=== PATIENT | male | born 1985 | race American Indian/Alaskan Native ===

== ENCOUNTER 2018-02-22 12:47 | Emergency (ER) | payer SELFPAY ==
[2018-02-22] MEDS ORDERED: HCTZ PO ONE (14:05)
[2018-02-22] MEDS ORDERED: ZESTRIL PO ONE (14:05)
--- NOTE | 2018-02-22 14:09 | Emergency Department Report ---
ED General Adult HPI - General Chief complaint: High BP Stated complaint: HBP Time Seen by Provider: 02/22/18 14:01 Source: patient Mode of arrival: Ambulatory Limitations: No Limitations - History of Present Illness Initial comments: Patient is 32 years old male was sent from [facility] for elevated blood pressure. Patient was admitted there for schizophrenia. Patient stated that he was taking Vasotec and hydrochlorothiazide when he was incarcerated and that was controlling his pressure may well. Patient denied any other symptoms. Patient denied any headache, neck pain, chest pain, shortness of breath, abdominal pain, weakness, numbness or tingling sensation. - Related Data Previous Rx's Medication Instructions Recorded Last Taken Type Enalapril Maleate [Vasotec] 20 mg PO DAILY #30 tablet 02/22/18 Unknown Rx hydroCHLOROthiazide [HCTZ] 25 mg PO QDAY #30 tablet 02/22/18 Unknown Rx ED Review of Systems ROS: Stated complaint: HBP Other details as noted in HPI Comment: All other systems reviewed and negative Constitutional: denies: chills Respiratory: denies: cough, orthopnea, shortness of breath, SOB with exertion Cardiovascular: denies: chest pain, palpitations Gastrointestinal: denies: abdominal pain, nausea, vomiting ED Past Medical Hx - Past Medical History Previous Medical History?: Yes Hx Hypertension: Yes - Surgical History Past Surgical History?: No - Social History Smoking Status: Current Every Day Smoker Substance Use Type: Alcohol, Marijuana - Medications Home Medications: Home Medications Medication Instructions Recorded Confirmed Last Taken Type Enalapril Maleate [Vasotec] 20 mg PO DAILY #30 tablet 02/22/18 Unknown Rx hydroCHLOROthiazide [HCTZ] 25 mg PO QDAY #30 tablet 02/22/18 Unknown Rx ED Physical Exam - General Limitations: No Limitations General appearance: alert, in no apparent distress - Head Head exam: Present: atraumatic, normocephalic, normal inspection - Eye Eye exam: Present: normal appearance - ENT ENT exam: Present: normal exam, normal orophraynx, mucous membranes moist - Neck Neck exam: Present: normal inspection, full ROM. Absent: tenderness, meningismus, lymphadenopathy - Respiratory Respiratory exam: Present: normal lung sounds bilaterally. Absent: respiratory distress, wheezes, rales, rhonchi, stridor, chest wall tenderness, accessory muscle use, decreased breath sounds, prolonged expiratory - Cardiovascular Cardiovascular Exam: Present: regular rate, normal rhythm, normal heart sounds - GI/Abdominal GI/Abdominal exam: Present: soft, normal bowel sounds. Absent: distended, tenderness, guarding, rebound, rigid, organomegaly, mass, bruit, pulsatile mass , hernia - Extremities Exam Extremities exam: Present: normal inspection, full ROM, normal capillary refill. Absent: tenderness, pedal edema, joint swelling, calf tenderness - Neurological Exam Neurological exam: Present: alert, oriented X3, CN II-XII intact, normal gait, reflexes normal - Skin Skin exam: Present: warm, intact, normal color ED Course Vital Signs 02/22/18 02/22/18 12:52 14:15 Temperature 98.3 F Pulse Rate 113 H 74 Respiratory 18 Rate Blood Pressure 137/105 152/95 O2 Sat by Pulse 100 Oximetry - Reevaluation(s) Reevaluation #1: 02/22/18 17:26 After patient was ready to be discharged to go back to [facility], patient started saying that he is having suicidal thoughts. He stated that he is hearing voices asking him to kill himself. Patient does not have a plan. He denied any homicidal ideation. Patient immediately put on 1013 and mental health evaluation requested. Critical care attestation.: If time is entered above; I have spent that time in minutes in the direct care of this critically ill patient, excluding procedure time. ED Disposition Clinical Impression: Hypertension, Suicidal ideation Disposition: [id number]/TX-65 PSY HOSP/PSY UNIT Is pt being admited?: No Condition: Stable Instructions: Hypertension (ED) Prescriptions: Enalapril Maleate [Vasotec] 20 mg PO DAILY #30 tablet hydroCHLOROthiazide [HCTZ] 25 mg PO QDAY #30 tablet Referrals: PRIMARY CARE, [Primary Care Provider] - 3-5 Days
[2018-02-22 22:43] LABS: Amphetamine Screen,Urine PRESUMPTIVE NEGATIVE; Benzodiazepines Screen,Urine PRESUMPTIVE NEGATIVE; Cocaine Screen,Urine PRESUMPTIVE NEGATIVE; Methadone Screen,Urine PRESUMPTIVE NEGATIVE; Opiate Screen,Urine PRESUMPTIVE NEGATIVE
[2018-02-22 22:48] LABS: Bilirubin,Urine NEG (Negative); Blood,Urine NEG (Negative); Color,Urine Amber (Yellow); Mucus,Urine 3+ /HPF
[2018-02-22 23:08] LABS: Basophils # (Auto) 0.1 K/mm3 (0.0-0.1); Basophils % (Auto) 1.6 % (0.0-1.8); Eosinophils # (Auto) 0.1 K/mm3 (0.0-0.4); Eosinophils % (Auto) 2.1 % (0.0-4.3); Hematocrit 44.3 % (35.5-45.6); Lymphocytes # (Auto) 2.4 K/mm3 (1.2-5.4); Lymphocytes % (Auto) 36.6 % (13.4-35.0); Mean Corpuscular HGB Conc 34 % (32-34); Mean Corpuscular Hemoglobin 31 pg (28-32); Mean Corpuscular Volume 91 fl (84-94); Monocytes # (Auto) 0.5 K/mm3 (0.0-0.8); Monocytes % (Auto) 7.1 % (0.0-7.3); Platelet Count 211 K/mm3 (140-440); Red Blood Count 4.87 M/mm3 (3.65-5.03); Red Cell Distribution Width 13.5 % (13.2-15.2)
[2018-02-22 23:17] LABS: Cannabinoid Screen,Urine PRESUMPTIVE POSITIVE
[2018-02-22 23:28] LABS: BUN/Creatinine Ratio 12; Blood Urea Nitrogen 11 mg/dL (9-20); Calcium 9.4 mg/dL (8.4-10.2); Hemolysis Index 0
[2018-02-23] MEDS ORDERED: D50W (25GM) Syringe IV ONE (05:04)
--- NOTE | 2018-02-23 14:12 | Consultation ---
History of Present Illness - Reason for Consult Consult date: 02/23/18 Reason for consult: Mental Health Evaluation Requesting physician: OSCAR EWING - Chief Complaint Chief complaint: "I am hearing voices' - History of Present Psychiatric Illness 32 years old AA male was sent from [facility] for elevated blood pressure. Per the record, the patient stated that he was hearing voice telling him to kill himself prior to his discharge from the ER. Today the patient is calm and cooperative, but adamant about hearing voices. He stated that the voices are saying "lots of things." He stated that he is trying to ignore them, but it's very difficult for him at this time. He would not confirm or deny that the voices are telling him to kill himself when asked. He was asked about being suicidal, he stated, "I don't k now." Per collateral from the [facility] staff, the patient takes Zyprex 5 mg PO QAM and 10 mg PO HS. He denies erratic sleep and a poor appetite. He denies recreational drug use, but he is positive for marijuana. He denies alcohol consumption (etoh). Medications and Allergies Allergies Allergy/AdvReac Type Severity Reaction Status Date / Time No Known Allergies Allergy Verified 02/23/18 05:14 Home Medications Medication Instructions Recorded Confirmed Last Taken Type Enalapril Maleate [Vasotec] 20 mg PO DAILY #30 tablet 02/22/18 Unknown Rx hydroCHLOROthiazide [HCTZ] 25 mg PO QDAY #30 tablet 02/22/18 Unknown Rx Past psychiatric history - Past Medical History Past Medical History: hypertension Past Surgical History: No surgical history - past Psychiatric treatment and history psychiatric treatment history: Several inpatient psy settings. He denies a fam psy hx. - Social History Social history: lives with family Mental Status Exam - Vital signs Last Vital Signs Temp 98.4 F 02/23/18 10:00 Pulse 100 H 02/23/18 10:00 Resp 18 02/23/18 12:35 BP 168/103 02/23/18 10:00 Pulse Ox 100 02/23/18 12:35 - Exam Narrative exam: MSE: Appearance: calm, cooperative, disheveled Behavior: regular eye contact Speech: regular rate and tone Mood: "okay" Affect: flat Thought Process: circumstantial Thought Content: denies HI's and VH's, the patient can not confirm or deny SI's Motor Activity: lying in bed Cognition: A/O x 3 Insight: poor Judgment: poor Results Result Diagrams: 02/22/18 22:21 02/22/18 22:21 Abnormal lab results 02/22/18 02/22/18 02/22/18 Range/Units 21:23 22:21 22:21 Lymph % (Auto) (13.4-35.0) % Glucose (75-100) mg/dL Ur Specific [place] 1.032 H (1.003-1.030) Urine WBC (Auto) 11.0 H (0.0-6.0) /HPF Salicylates < 0.3 L (2.8-20.0) mg/dL Acetaminophen < 5.0 L (10.0-30.0) ug/mL 02/22/18 02/22/18 Range/Units 22:21 22:21 Lymph % (Auto) 36.6 H (13.4-35.0) % Glucose 117 H (75-100) mg/dL Ur Specific [place] (1.003-1.030) Urine WBC (Auto) (0.0-6.0) /HPF Salicylates (2.8-20.0) mg/dL Acetaminophen (10.0-30.0) ug/mL All other labs normal. Assessment and Plan Assessment and plan: Impression: Unspecified Psychosis. Cannabis Use DO. Today the patient is calm and cooperative, but adamant about hearing voices. DDx: Schizophrenia, R/O Bipolar DO with psychosis Recommendation/Plan: Continue 1013 with placement to inpatient psy services. Start Zyprexa 5 mg PO QAM and 10 mg PO HS for psychosis. Discussed possible metabolic side effects of Zyprexa with patient.
--- NOTE | 2018-02-24 12:00 | Progress Note ---
Subjective - Reason for Consult Consult date: 02/24/18 Reason for consult: Psychiatry Follow-up - Chief Complaint Chief complaint: "I want to be okay" 32 years old AA male was sent from [facility] for elevated blood pressure. Per the record, the patient stated that he was hearing voice telling him to kill himself prior to his discharge from the ER. Today the patient is calm and cooperative during the assessment. He stated that he want the voices to stop. He would not confirm or deny SI's when asked. He stated that the voices continue to tell him to harm himself. He denies HI's and VH's. He denies any side effects of his medication. Mental Status Exam - Vital signs Last Vital Signs Temp 98.4 F 02/23/18 10:00 Pulse 100 H 02/23/18 10:00 Resp 18 02/23/18 12:35 BP 148/110 02/23/18 20:45 Pulse Ox 100 02/23/18 12:35 - Exam Narrative exam: MSE: Appearance: calm, cooperative, disheveled Behavior: regular eye contact Speech: regular rate and tone Mood: "okay" Affect: flat Thought Process: circumstantial Thought Content: denies HI's and VH's, the patient can not confirm or deny SI's Motor Activity: lying in bed Cognition: A/O x 3 Insight: poor Judgment: poor Assessment and Plan Impression: Unspecified Psychosis. Cannabis Use DO. Today the patient is calm and cooperative during the assessment. DDx: Schizophrenia, R/O Bipolar DO with psychosis Recommendation/Plan: Continue 1013 with placement to inpatient psy services. Continue Zyprexa 5 mg PO QAM and 10 mg PO HS for psychosis. Discussed possible metabolic side effects of Zyprexa with patient.
[2018-02-25] MEDS: NORVASC PO SCH (11:00)
[2018-02-25] MEDS ORDERED: CATAPRES PO ONE (21:16)
[2018-02-25] MEDS ORDERED: ZESTRIL PO ONE ×2 (21:16→21:17)
[2018-02-26] MEDS: NORVASC PO SCH (10:21)
--- NOTE | 2018-02-26 13:08 | Progress Note ---
Subjective - Reason for Consult Consult date: 02/26/18 Reason for consult: Psychiatry Follow-up - Chief Complaint Chief complaint: "I want to be okay" 32 years old AA male was sent from [facility] for elevated blood pressure. Per the record, the patient stated that he was hearing voice telling him to kill himself prior to his discharge from the ER. Today the patient is calm and cooperative, but anxious during the assessment. He stated that his anxiety has interfered with his sleep. He cannot explain why he is anxious when asked. He continue to hear voices telling him "all sorts of things." He denies SI/HI's and VH's. He denies any side effects of his medication. Mental Status Exam - Vital signs Last Vital Signs Temp 98.3 F 02/26/18 11:17 Pulse 101 H 02/26/18 11:17 Resp 18 02/26/18 11:17 BP 134/77 02/26/18 12:50 Pulse Ox 99 02/26/18 02:00 - Exam Narrative exam: MSE: Appearance: calm, cooperative Behavior: regular eye contact Speech: regular rate and tone Mood: "okay" guarded Affect: flat Thought Process: circumstantial Thought Content: denies SI/HI's and VH's Motor Activity: lying in bed Cognition: A/O x 3 Insight: variable Judgment: variable Assessment and Plan Impression: Unspecified Psychosis. Cannabis Use DO. Additional Dx: Unspecified Anxiety DO. Today the patient is calm and cooperative, but anxious during the assessment. DDx: Schizophrenia, R/O Bipolar DO with psychosis Recommendation/Plan: Continue 1013 with placement to inpatient psy services. Continue Zyprexa 5 mg PO QAM and 10 mg PO HS for psychosis and start Buspar 7.5 mg PO BID for anxiety. Discussed possible metabolic side effects of Zyprexa with patient.
[2018-02-26] MEDS: BUSPAR PO SCH ×2 (15:36→22:19)
[2018-02-27] MEDS: BUSPAR PO SCH ×2 (11:05→22:11)
[2018-02-27] MEDS: NORVASC PO SCH (11:05)
--- NOTE | 2018-02-27 12:53 | Progress Note ---
Subjective - Reason for Consult Consult date: 02/27/18 Reason for consult: Psychiatry Follow-up - Chief Complaint Chief complaint: "The voices are my issue" 32 years old AA male was sent from [facility] for elevated blood pressure. Per the record, the patient stated that he was hearing voice telling him to kill himself prior to his discharge from the ER. Today the patient is calm and cooperative during the assessment. He stated that the voices are his "main issue." He would not confirm or deny that the voices or his SI's have decreased when asked. He is adamant that he need help for his "mental health." He denies HI's and VH's. He denies any side effects of his medications. Mental Status Exam - Vital signs Last Vital Signs Temp 98.6 F 02/26/18 19:45 Pulse 89 02/27/18 11:05 Resp 18 02/26/18 19:45 BP 149/86 02/27/18 11:05 Pulse Ox 99 02/26/18 19:45 - Exam Narrative exam: MSE: Appearance: calm, cooperative Behavior: poor eye contact Speech: regular rate and tone Mood: "okay" guarded Affect: flat Thought Process: circumstantial Thought Content: denies SI/HI's and VH's Motor Activity: lying in bed Cognition: A/O x 3 Insight: variable Judgment: variable Assessment and Plan Impression: Unspecified Psychosis. Cannabis Use DO. Additional Dx: Unspecified Anxiety DO. Today the patient is calm and cooperative during the assessment. DDx: Schizophrenia, R/O Bipolar DO with psychosis Recommendation/Plan: Continue 1013 with placement to inpatient psy services. Continue Zyprexa 5 mg PO QAM and 10 mg PO HS for psychosis and start Buspar 7.5 mg PO BID for anxiety. Discussed possible metabolic side effects of Zyprexa with patient.
[2018-02-28] MEDS: BUSPAR PO SCH ×3 (11:23→23:19)
[2018-02-28] MEDS: NORVASC PO SCH (11:24)
--- NOTE | 2018-02-28 13:26 | Progress Note ---
Subjective - Reason for Consult Consult date: 02/28/18 Reason for consult: Psychiatry Follow-up - Chief Complaint Chief complaint: "Chela" 32 years old AA male was sent from [facility] for elevated blood pressure. Per the record, the patient stated that he was hearing voice telling him to kill himself prior to his discharge from the ER. Today the patient is calm and cooperative during the assessment. He stated that the voices are still active. He stated that he didn't sleep well last night because of the voices. Throughout the interview, the patient would look around and pause before he answer questions, possibly respond to some type of stimuli. He denies SI/HI's and VH's. He denies any side effects of his medications. Mental Status Exam - Vital signs Last Vital Signs Temp 97.8 F 02/28/18 08:00 Pulse 86 02/28/18 08:00 Resp 16 02/28/18 08:00 BP 148/97 02/28/18 08:00 Pulse Ox 100 02/28/18 08:00 - Exam Narrative exam: MSE: Appearance: calm, cooperative Behavior: regular eye contact Speech: regular rate and tone Mood: guarded Affect: flat Thought Process: circumstantial Thought Content: denies SI/HI's and VH's, paranoid Motor Activity: lying in bed Cognition: A/O x 3 Insight: variable Judgment: variable Assessment and Plan Impression: Unspecified Psychosis. Cannabis Use DO. Additional Dx: Unspecified Anxiety DO. Today the patient is calm and cooperative during the assessment. DDx: Schizophrenia, R/O Bipolar DO with psychosis Recommendation/Plan: Continue 1013 with placement to inpatient psy services. Increase Zyprexa to 10 mg PO QAM for psychosis, continue Zyprexa 10 mg PO HS for psychosis, and Buspar 7.5 mg PO BID for anxiety. Discussed possible metabolic side effects of Zyprexa with patient.
[2018-03-01] MEDS: BUSPAR PO SCH ×2 (12:03→23:40)
[2018-03-01] MEDS: NORVASC PO SCH (12:04)
--- NOTE | 2018-03-01 15:56 | Progress Note ---
Subjective - Reason for Consult Consult date: 03/01/18 Reason for consult: Psychiatric Follow-up Evaluation - Chief Complaint Chief complaint: "I'm alright" Patient is a 32 years old male that was recently discharged from [facility]. He presented to the emergency room with elevated blood pressure. He verbalized to the provider, he presented to the emergency room due to auditory hallucinations and paranoid schizophrenia. Today the patient is calm and cooperative during the assessment. He continues to endorse auditory hallucinations telling him to hurt himself and that others are trying to hurt him. Patient has paranoid thoughts secondary to auditory hallucinations. He reports good sleep and appetite. He denies SI/HI's and VH's. Patient is compliant with medication. He denies any side effects of his medications. Mental Status Exam - Vital signs Last Vital Signs Temp 98.5 F 03/01/18 12:11 Pulse 66 03/01/18 12:11 Resp 20 03/01/18 12:11 BP 158/95 03/01/18 12:11 Pulse Ox 100 03/01/18 12:11 - Exam Narrative exam: Mental Status Exam General Appearance: Causally Dressed-hospital gown Eye Contact: Intermittent Orientation: Alert and oriented x 4 ( person, place, time, and situation) Attitude/Behavior: Cooperative Sensorium: Distracted Psychomotor & Musculoskeletal Activity: WNL Mood: "Alright" Affect: Congruent with mood Speech/Language: Normal rate and tone Thought Processes: Circumstantial Thought Content: +Paranoid delusions secondary to AH's Perception: + AH's telling him to hurt himself and others are trying to hurt him Concentration/Attention: Impaired Suicidal Ideations/Plan: Patient denies Homicidal Ideations/Plan: Patient denies Judgment: Poor Insight: Poor Assessment and Plan Impression: Unspecified Psychosis. Cannabis Use DO. Additional Dx: Unspecified Anxiety DO. Today the patient is calm and cooperative during the assessment. He endorses AH's and paranoid delusions. He denies SI/HI's. DDx: Schizophrenia, R/O Bipolar DO with psychosis Recommendation/Plan: 1. Continue 1013 with placement to inpatient psychiatric services. 2. Continue Zyprexa to 10 mg PO QAM for psychosis, continue Zyprexa 10 mg PO HS for psychosis, and Buspar 7.5 mg PO BID for anxiety. Discussed possible metabolic side effects of Zyprexa with patient. 3. Will continue to monitor mood, psychosis, sleep, appetite, compliance,and side effects.
[2018-03-01] MEDS ORDERED: DESYREL PO ONE (23:22)
[2018-03-01] MEDS ORDERED: COGENTIN ONE (23:22)
[2018-03-02] MEDS: BUSPAR PO SCH ×2 (10:54→22:04)
[2018-03-02] MEDS: NORVASC PO SCH (10:55)
--- NOTE | 2018-03-02 13:05 | Progress Note ---
Subjective - Reason for Consult Consult date: 03/02/18 Reason for consult: Psychiatry Follow-up - Chief Complaint Chief complaint: "I hate the voices" 32 years old AA male was sent from [facility] for elevated blood pressure. Per the record, the patient stated that he was hearing voice telling him to kill himself prior to his discharge from the ER. Today the patient is agitated and paranoid during the assessment. He did state that the voices are still active and he don't know what to do about it. He stated, "something isn't right with me." He is adamant that he need help for his issues. He became angry after discussing his treatment and would not answer anymore questions. No gestures of SI/HI's. No indications of side effects of his medications. Mental Status Exam - Vital signs Last Vital Signs Temp 98.4 F 03/02/18 10:00 Pulse 103 H 03/02/18 10:55 Resp 18 03/02/18 10:00 BP 146/88 03/02/18 10:55 Pulse Ox 100 03/02/18 10:00 - Exam Narrative exam: MSE: Appearance: uncooperative Behavior: regular eye contact Speech: regular rate and loud tone Mood: agitated Affect: congruent to mood Thought Process: circumstantial Thought Content: denies SI/HI's and VH's, paranoid Motor Activity: lying in bed Cognition: A/O x 3 Insight: variable Judgment: variable Assessment and Plan Impression: Unspecified Psychosis. Cannabis Use DO. Additional Dx: Unspecified Anxiety DO. Today the patient is agitated and paranoid during the assessment. DDx: Schizophrenia, R/O Bipolar DO with psychosis Recommendation/Plan: The patient's 1013 had to be extended. Continue 10 mg PO QAM for psychosis, continue Zyprexa 10 mg PO HS for psychosis, and Buspar 7.5 mg PO BID for anxiety. Discussed possible metabolic side effects of Zyprexa with patient.
[2018-03-03] MEDS: BUSPAR PO SCH (10:30)
[2018-03-03] MEDS: NORVASC PO SCH (10:30)
--- NOTE | 2018-03-03 12:52 | Progress Note ---
Subjective - Reason for Consult Consult date: 03/03/18 Reason for consult: Psychiatry Follow-up - Chief Complaint Chief complaint: "It's what it is" Patient is a 32 years old male that was recently discharged from [facility]. He presented to the emergency room with elevated blood pressure. He verbalized to the provider, he presented to the emergency room due to auditory hallucinations and paranoid schizophrenia. Today the patient is calm during the assessment. The patient had to be redirected several times, because he rambles on about lutheran content. He denies SI's and VH's. He stated that the voices are still active. He denies any side effects of his medications. Mental Status Exam - Vital signs Last Vital Signs Temp 99.3 F 03/02/18 20:10 Pulse 101 H 03/02/18 20:10 Resp 14 03/02/18 20:10 BP 139/85 03/02/18 20:10 Pulse Ox 100 03/02/18 20:10 - Exam Narrative exam: MSE: Appearance: calm Behavior: regular eye contact Speech: regular rate and loud tone Mood: "I don't know" Affect: flat Thought Process: circumstantial Thought Content: denies SI/HI's and VH's, hyper lutheran Motor Activity: lying in bed Cognition: A/O x 3 Insight: poor Judgment: variable Assessment and Plan Impression: Unspecified Psychosis. Cannabis Use DO. Additional Dx: Unspecified Anxiety DO. Today the patient is agitated and paranoid during the assessment. DDx: Schizophrenia, R/O Bipolar DO with psychosis Recommendation/Plan: Continue 1013 with placement to [facility] pending transport time. Continue 10 mg PO QAM for psychosis, continue Zyprexa 10 mg PO HS for psychosis, and Buspar 7.5 mg PO BID for anxiety. Discussed possible metabolic side effects of Zyprexa with patient.
[2018-03-03 20:45] VITALS: BP 138/71
== END 2018-03-03 20:30 ==
LOC: ED 12:47 → EEVIPCON 12:47 → ED 03-03 20:30
DX: I10 Essential (primary) hypertension (principal); F17.200 Nicotine dependence, unspecified, uncomplicated
CPT/HCPCS: 36415; 80048; 80307; 81001; 85025; 99285; G0480; 80320

== ENCOUNTER → 2018-12-17 | Emergency (ER) | payer OTHER ==
[~2018-12-17] MED LIST: NON-FORMULARY (Quetiapine Fumarate [Seroquel] 300 MG) PO SCH; PROzac PO SCH; ZESTRIL PO SCH
--- NOTE | 2018-12-18 00:58 | Emergency Department Report ---
ED Psych HPI - General Chief Complaint: Psych Stated Complaint: MH EVAL Time Seen by Provider: 12/18/18 00:52 Source: patient, police Mode of arrival: Ambulatory - History of Present Illness Initial Comments: 33-year-old male history of bipolar disorder presents to ED with suicidal ideations. Patient states he ran out of his psychiatric medications. Denies homicidal ideations or hallucinations. Denies alcohol use, reports marijuana use. MD Complaint: suicidal ideation -: days(s) (1) Associated Psychiatric Symptoms: depression, suicidal ideation History of same: Yes Quality: constant Improves With: none Worsens With: none Context: not taking psychiatric Associated Symptoms: denies other symptoms Treatments Prior to Arrival: none - Related Data Home Medications Medication Instructions Recorded Confirmed Last Taken FLUoxetine [PROzac] 20 mg PO QAM 10/26/18 12/18/18 Unknown Haloperidol [Haldol] 5 mg PO BID 10/26/18 12/18/18 Unknown Lisinopril [Zestril] 20 mg PO QAM 10/26/18 12/18/18 Unknown Quetiapine Fumarate [SEROquel] 300 mg PO HS 10/26/18 12/18/18 Unknown Allergies Allergy/AdvReac Type Severity Reaction Status Date / Time No Known Allergies Allergy Verified 02/23/18 05:14 ED Review of Systems ROS: Stated complaint: MH EVAL Other details as noted in HPI Comment: All other systems reviewed and negative Psychiatric: depression, suicidal thoughts. denies: auditory hallucinations, visual hallucinations, homicidal thoughts ED Past Medical Hx - Past Medical History Hx Hypertension: Yes Hx Psychiatric Treatment: Yes (Pt left [place] earlier this week) - Social History Substance Use Type: None - Medications Home Medications: Home Medications Medication Instructions Recorded Confirmed Last Taken Type FLUoxetine [PROzac] 20 mg PO QAM 10/26/18 12/18/18 Unknown History Haloperidol [Haldol] 5 mg PO BID 10/26/18 12/18/18 Unknown History Lisinopril [Zestril] 20 mg PO QAM 10/26/18 12/18/18 Unknown History Quetiapine Fumarate [SEROquel] 300 mg PO HS 10/26/18 12/18/18 Unknown History ED Physical Exam - General Limitations: No Limitations General appearance: alert, in no apparent distress - Head Head exam: Present: atraumatic, normocephalic - Eye Eye exam: Present: normal appearance - ENT ENT exam: Present: mucous membranes moist - Neck Neck exam: Present: normal inspection - Respiratory Respiratory exam: Present: normal lung sounds bilaterally. Absent: respiratory distress - Cardiovascular Cardiovascular Exam: Present: regular rate, normal rhythm - GI/Abdominal GI/Abdominal exam: Absent: distended - Extremities Exam Extremities exam: Present: normal inspection - Neurological Exam Neurological exam: Present: alert, oriented X3 - Psychiatric Psychiatric exam: Present: flat affect - Skin Skin exam: Present: warm, dry, intact, normal color ED Course Vital Signs 12/18/18 00:54 Temperature 98.7 F Pulse Rate 79 Respiratory 18 Rate Blood Pressure 143/94 [Left] O2 Sat by Pulse 97 Oximetry ED Medical Decision Making - Lab Data Result diagrams: 12/18/18 01:42 12/18/18 01:42 - Medical Decision Making 33 yo M with bipolar disorder reports suicidal ideations. Pt placed on 1013. Drug screen positive for marijuana, amphetamines, cocaine. Otherwise labs are unremarkable. Pt is medically clear for mental health evaluation. Will dispo per psych. Critical care attestation.: If time is entered above; I have spent that time in minutes in the direct care of this critically ill patient, excluding procedure time. ED Disposition Clinical Impression: Suicidal ideation, Cocaine abuse, Amphetamine abuse, Marijuana abuse Disposition: [id number]/[id number] PSY HOSP/PSY UNIT Is pt being admited?: No Condition: Stable Referrals: NILS VAZ MD [Primary Care Provider] - 3-5 Days
[2018-12-18 01:57] LABS: Bilirubin,Urine NEG (Negative); Blood,Urine NEG (Negative); Color,Urine Yellow (Yellow); Mucus,Urine 3+ /HPF; Protein,Urine <15 mg/dL mg/dL (Negative)
[2018-12-18 01:59] LABS: Benzodiazepines Screen,Urine PRESUMPTIVE NEGATIVE; Methadone Screen,Urine PRESUMPTIVE NEGATIVE; Opiate Screen,Urine PRESUMPTIVE NEGATIVE
[2018-12-18 02:15] LABS: Basophils % (Auto) 0.8 % (0.0-1.8); Eosinophils % (Auto) 0.2 % (0.0-4.3); Hematocrit 38.3 % (35.5-45.6); Hemoglobin 12.9 gm/dl (11.8-15.2); Lymphocytes # (Auto) 1.4 K/mm3 (1.2-5.4); Lymphocytes % (Auto) 24.5 % (13.4-35.0); Mean Corpuscular HGB Conc 34 % (32-34); Mean Corpuscular Volume 92 fl (84-94); Monocytes # (Auto) 0.4 K/mm3 (0.0-0.8); Monocytes % (Auto) 6.8 % (0.0-7.3); Platelet Count 192 K/mm3 (140-440); Red Blood Count 4.17 M/mm3 (3.65-5.03); Red Cell Distribution Width 15.5 % (13.2-15.2)
[2018-12-18 02:27] LABS: Amphetamine Screen,Urine PRESUMPTIVE POSITIVE; Cannabinoid Screen,Urine PRESUMPTIVE POSITIVE; Cocaine Screen,Urine PRESUMPTIVE POSITIVE
[2018-12-18 02:38] LABS: BUN/Creatinine Ratio 5; Blood Urea Nitrogen 6 mg/dL (9-20); Calcium 8.7 mg/dL (8.4-10.2); Hemolysis Index 2
[2018-12-18 10:36] VITALS: BP 140/99
--- NOTE | 2018-12-18 12:15 | Consultation ---
History of Present Illness - Reason for Consult Consult date: 12/18/18 Reason for consult: Mental Health Evaluation Requesting physician: ANAYA HOOD - Chief Complaint Chief complaint: "I can leave today" - History of Present Psychiatric Illness 33-year-old AA male who presented to the ER for SI's/ his patient is known to me. Today the was calm and cooperative during the assessment. He stated that he used drugs and felt like he needed somewhere to go, so he decided to come to the ER. He stated that he wasn't suicidal on arrival to the ER. He stated that he answered the "suicide question" the best way he knew how at the time. He stated that his drug problem is his biggest issue at this time. He stated that he will follow up with outpatient psy/rehab services. He denies SI/HI's and AVH's. He denies being depressed. He denies alcohol consumption (etoh). Medications and Allergies Allergies Allergy/AdvReac Type Severity Reaction Status Date / Time No Known Allergies Allergy Verified 02/23/18 05:14 Home Medications Medication Instructions Recorded Confirmed Last Taken Type FLUoxetine [PROzac] 20 mg PO QAM 10/26/18 12/18/18 Unknown History Haloperidol [Haldol] 5 mg PO BID 10/26/18 12/18/18 Unknown History Lisinopril [Zestril] 20 mg PO QAM 10/26/18 12/18/18 Unknown History Quetiapine Fumarate [SEROquel] 300 mg PO HS #30 tablet 12/18/18 Unknown Rx Sertraline [Zoloft] 50 mg PO QDAY #30 tablet 12/18/18 Unknown Rx Active Meds: Active Medications Fluoxetine HCl (Prozac) 20 mg PO QAM [facility] Last Admin: 12/18/18 10:57 Dose: 20 mg Documented by: [facility] [place] Last Admin: 12/18/18 10:57 Dose: 20 mg Documented by: Quetiapine Fumarate (Seroquel) 300 mg PO QHS [facility] Past psychiatric history - Past Medical History Past Medical History: No medical history Past Surgical History: No surgical history - past Psychiatric treatment and history psychiatric treatment history: Several inpatient psy services. Denies a fam psy hx. - Social History Social history: lives with family Mental Status Exam - Vital signs Last Vital Signs Temp 98 F 12/18/18 10:34 Pulse 63 12/18/18 10:34 Resp 20 12/18/18 10:34 BP 140/99 12/18/18 10:34 Pulse Ox 98 12/18/18 10:34 - Exam Narrative exam: MSE: Appearance: calm, cooperative Behavior: regular eye contact Speech: regular rate and tone Mood: "better" Affect: congruent to mood Thought Process: linear Thought Content: denies SI/HI's and AVH's Motor Activity: sitting up in the bed Cognition: A/O x 3 Insight: fair Judgment: fair Results Result Diagrams: 12/18/18 01:42 12/18/18 01:42 Abnormal lab results 12/18/18 12/18/18 12/18/18 Range/Units 01:42 01:42 01:42 RDW (13.2-15.2) % Carbon Dioxide 21 L (22-30) mmol/L BUN 6 L (9-20) mg/dL Glucose 105 H (75-100) mg/dL Salicylates < 0.3 L (2.8-20.0) mg/dL Acetaminophen < 5.0 L (10.0-30.0) ug/mL 12/18/18 Range/Units 01:42 RDW 15.5 H (13.2-15.2) % Carbon Dioxide (22-30) mmol/L BUN (9-20) mg/dL Glucose (75-100) mg/dL Salicylates (2.8-20.0) mg/dL Acetaminophen (10.0-30.0) ug/mL All other labs normal. 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 Cannabis Use DO. Today the patient was calm and cooperative during the assessment. The patient is no threat to self. DDx: Substance Induced Mood DO Recommendation/Plan: Rescind 1013. Continue home medications Zoloft 50 mg PO and Seroquel 300 mg PO HS. Discussed possible side effects of his medications, he verbalized understanding. Discussed the importance to abstain from recreational drug use, he verbalized understanding. Dispo: The patient can follow up with [facility] for outpatient psy/rehab s ervices. Staffed with Dr Ney Suarez.
== END | disposition home or self-care (01) ==
LOC: EEVIPCON 22:51 → ED 22:51
DX: F39 Unspecified mood [affective] disorder (principal); F12.10 Cannabis abuse, uncomplicated; F14.10 Cocaine abuse, uncomplicated; F15.10 Other stimulant abuse, uncomplicated
CPT/HCPCS: 36415; 80048; 80307; 80320; 81001; 85025; G0480